=== PATIENT | female | born 1995 | race African-American/Black ===

== ENCOUNTER 2017-02-02 14:01 | Emergency (ER) | payer SELFPAY ==
[~2017-02-02 14:01] MED LIST: AUGMENTIN 875-11 TAB PO; CIPRO500 M2 PO; COMPAZINE10 MG PO; LORTAB 5/5001 EA PO; MACROBID 100 M100 M1 PO; NORCO 5/325 TAB1 TAB PO; PRENATAL1 EACH PO; TRAMADOL HCL50 M2 PO; TYLENOL W/CODEI1 TAB PO; TYLENOL325 MG PO
[2017-02-02] MEDS ORDERED: AMOXICILLIN875 M1 PO (15:03)
== END 2017-02-02 15:23 ==
LOC: EDMED 14:01
DX: J02.0 Streptococcal pharyngitis (principal)

== ENCOUNTER 2017-02-05 14:23 | Emergency (ER) | payer SELFPAY ==
[~2017-02-05 14:23] MED LIST changes: +AMOXICILLIN875 M1 PO
[2017-02-05 15:05] LABS: BASO % 0.6 % (0-2); EOS % 0.5 % (0-7); HGB-HEMOGLOBIN 14.6 gm/dl (12.0-15.5); IMMATURE GRANULOCYTES ABSOLUTE 0.01 tho/cmm (0-0.03); IMMATURE GRANULOCYTES PERCENT 0.2 % (0-0.3); LYMPH % 41.6 % (20-45); LYMPH ABSOLUTE COUNT 2.7 tho/cmm (0.8-4.5); MCH (MEAN CORPUSCULAR HGB) 27.6 pg (28.0-32.0); MCV (MEAN CELL VOLUME) 81.3 fl (82.0-96.0); MEAN PLATELET VOLUME 9.6 cmc (9.4-12.4); MONO % 13.6 % (0-12); MONOCYTE ABSOLUTE COUNT 0.9 tho/cmm (0.0-1.2); NEUTROPHIL ABSOLUTE COUNT 2.8 tho/cmm (1.6-8.0); NEUTROPHIL-AUTOMATED 2.8 tho/cmm (1.6-8.0); NEUTROPHILS % 43.5 % (40-80); PLATELET COUNT 254 tho/cmm (150-450); RED BLOOD COUNT 5.29 mil/cmm (4.00-5.20); RED CELL DISTRIBUTION WIDTH 12.9 % (12.4-16.4); WHITE BLOOD COUNT 6.5 tho/cmm (4.0-10.0)
[2017-02-05 15:19] LABS: ANION GAP 12 mmol/L (0-20); BLOOD UREA NITROGEN 7 mg/dl (6-24); CALCIUM 8.9 mg/dl (8.5-10.5); CARBON DIOXIDE-VENOUS 26 mmol/L (22-32); CHLORIDE 107 mmol/l (96-110); CREATININE 0.91 mg/dl (0.50-1.10); GLUCOSE 105 mg/dL (70-110); POTASSIUM 3.8 mmol/L (3.7-5.1); SODIUM 141 mmol/L (135-145); eGFR VALUE FOR BLACK >90 mL/Min
[2017-02-05] MEDS ORDERED: ZITHROMAX500 M2 PO (15:46)
== END 2017-02-05 16:00 ==
LOC: EDMED 14:23
PROVIDERS: Nurse Practitioner Family
DX: J02.9 Acute pharyngitis, unspecified (principal)
CPT/HCPCS: J2405; J7030